=== PATIENT | male | born 1960 | race Caucasian/White ===

== ENCOUNTER 2024-01-06 10:58 | Day surgery (SDC) | payer OTHER, SELFPAY ==
[2024-01-06] VITALS (7 sets, daily range): BP systolic 151–172; BP diastolic 78–105; PULSE 70–76; RESP 16; TEMP 36.6; O2SAT 95–100
--- NOTE | 2024-01-06 11:16 | PCM.HP.BLA ---
History and Physical Date of Admission: 01/06/24 The patient is examined and there are no changes to the H&P dated 01/03/2024. He presents with a wound of his left thumb sustained more than 2 weeks ago. He presents for definitive closure of the resulting deformity. Assessment & Plan Assessment/Plan (1) Laceration of thumb with delay in treatment: (2) Deformity after injury: PLAN: Plan The patient presents for debridement and closure of the left thumb wound
[2024-01-06] MEDS: Lidocaine 1% /Epi 1:100 9 ML, Sodium Bicarbonate 1 MEQ OPERA.SITE (12:02)
--- NOTE | 2024-01-06 12:38 | DCINST_ITS ---
Discharge Instructions Follow Up Care Test Results: Test results from this visit will be discussed in further detail at your follow- up appointment, if applicable. Discharge Plan Admission Attending Provider: Lula Gan Primary Care Provider: Daina Johnson Instructions Print Language: Romansh Discharge Orders/Prescriptions Prescriptions: No Action calcium 600 mg capsule 600 mg PO DAILY multivitamin [Daily Multi-Vitamin] Tablet 1 tab PO DAILY Referrals / Follow Up: Daina Johnson MD [Primary Care Provider] - Disposition Disposition (needs filled in before D/C Order can be placed): Home, Self Care
--- NOTE | 2024-01-06 12:40 | PCM.OPRPT ---
Problems Associated Problem List Diagnoses (1) Deformity after injury: (2) Laceration of thumb with delay in treatment: Report of Operation Date of Procedure: 01/06/24 Pre-Operative Diagnosis: Left dorsal thumb laceration with deformity of soft tissue Post-Operative Diagnosis: Same Surgery/Procedure Performed:: Debridement and repair left dorsal thumb laceration (3.5 cm) Surgeon: Lula Gan Type of Anesthesia: Local Specimen's removed: None Estimated Blood Loss (mL): Minimal Description of Procedure: The patient presents having sought medical intervention approximately 2 weeks after the initial injury on his thumb. The injury on his thumb involve the flap of tissue which has created some deformity on the dorsum of his thumb. He presents for repair of the wound. Preoperative evaluation had identified no deficits. The patient is brought to the operating room and placed on the operating room table in the supine position. The left hand is prepped and draped in the usual sterile fashion. 1% Xylocaine with epinephrine and sodium bicarb is injected in the periphery of the flap but not directly into the proximally based flap. The wound is then debrided with curettes. The incision sites are excised to fresh tissue. The flap is then inset and tacked in place with a nylon suture. Further refinement of the closure was performed with a running chromic suture. The wound is then dressed with Xeroform, fluffs, Snow, and a 2 inch Ryan. He tolerated the procedure well was taken to the recovery area in an awake and stable condition. Needle and sponge counts are correct. Complications None Admit VTE Documentation VTE Mechan Device Prophylaxis: None Reason prophylaxis not ordered:: Treatment Not Indicated
--- NOTE | 2024-01-06 13:03 | DCINST_ITS ---
Discharge Instructions Dressing / Incision Additional Dressing/Incision Instructions:: Keep your hand elevated. You may leave the dressing in place until seen in the office. If you need to change it, apply antibiotic ointment, gauze and mirian wrap. Take the oral antibiotic (Keflex) 2 x a day until finished. Follow Up Care Please Follow Up With: Lula Gna MD When: 1-2 weeks Test Results: Test results from this visit will be discussed in further detail at your follow- up appointment, if applicable. Discharge Plan Admission Attending Provider: Lula Gan Primary Care Provider: Daina Johnson Instructions Print Language: Luxembourgish Discharge Orders/Prescriptions Prescriptions: No Action calcium 600 mg capsule 600 mg PO DAILY multivitamin [Daily Multi-Vitamin] Tablet 1 tab PO DAILY Referrals / Follow Up: Daina Johnson MD [Primary Care Provider] - Disposition Disposition (needs filled in before D/C Order can be placed): Home, Self Care
--- NOTE | 2024-01-06 13:09 | DCINST_ITS ---
Discharge Instructions Follow Up Care Test Results: Test results from this visit will be discussed in further detail at your follow- up appointment, if applicable. Discharge Plan Admission Attending Provider: Lula Gan Primary Care Provider: Daina Johnson Instructions Print Language: Swedish Discharge Orders/Prescriptions Prescriptions: New cephalexin 500 mg capsule 500 mg PO BID Qty: 14 0RF No Action calcium 600 mg capsule 600 mg PO DAILY multivitamin [Daily Multi-Vitamin] Tablet 1 tab PO DAILY Referrals / Follow Up: Daina Johnson MD [Primary Care Provider] - Disposition Disposition (needs filled in before D/C Order can be placed): Home, Self Care
== END 2024-01-06 13:00 | disposition home or self-care (01) ==
LOC: SDC 11:06 → AC 11:08
PROVIDERS: PCP Family Medicine; Referring Provider Plastic Surgery; Visit Provider Plastic Surgery
PROC: (CPT 12002; principal; 2024-01-06 11:50)
DX: S61.012A Laceration without foreign body of left thumb without damage to nail, initial encounter (principal); X58.XXXA Exposure to other specified factors, initial encounter
CPT/HCPCS: 12002; 00400